=== PATIENT | female | born 1965 | race Caucasian/White ===

== ENCOUNTER 2025-01-28 14:09 | Emergency (ER) | payer OTHER, MEDICAID ==
[~2025-01-28] VITALS: Ht 170.2 cm; Wt 113.4 kg
[2025-01-28] MEDS ORDERED: Robaxin750 MG PO (18:35)
[2025-01-28] MEDS ORDERED: RX Prepack 6 Tabs Oxycodone 5mg UD ONE (18:35)
[2025-01-28] MEDS ORDERED: Ketorolac Tromethamine 15mg Vial IM ONE (18:35)
== END 2025-01-28 18:57 | disposition other institution (70) ==
LOC: ER 14:09
DX: G89.29 Other chronic pain (principal); E11.40 Type 2 diabetes mellitus with diabetic neuropathy, unspecified; I10 Essential (primary) hypertension; Z88.0 Allergy status to penicillin; Z88.2 Allergy status to sulfonamides; Z88.8 Allergy status to other drugs, medicaments and biological substances; Z79.899 Other long term (current) drug therapy
CPT/HCPCS: 99283-25; A9270; J1885